=== PATIENT | male | born 1950 | race Caucasian/White ===

== ENCOUNTER 2018-06-12 05:08 | Outpatient (CLI) | payer MEDICARE, OTHER ==
[2018-06-12 13:08] LABS: #Basophils 0.1 thou/uL (0.0-0.2); #Eosinphils 0.1 thou/uL (0.0-0.7); #Monocytes 0.5 thou/uL (0.11-0.59); %Basophils 0.9 % (0.0-1.0); %Eosinophils 2.2 % (0.0-10.0); %Lymphocytes 29.3 % (21.0-51.0); %Monocytes 7.2 % (0.0-10.0); %Neutrophils 60.5 % (42.0-75.0); Hemoglobin 13.9 g/dL (14.0-18.0); Mean Corpuscular HGB CONC 32.6 g/dL (32.0-36.0); Mean Corpuscular Hemoglobin 28.1 pg (27.0-31.0); Mean Corpuscular Volume 86.3 fL (78.0-98.0); Mean Platelet Volume 9.5 fL (7.4-10.4); Platelet Count 216 thou/uL (130-400); RBC Distribution Width 13.5 % (11.5-14.5); Red Blood Cell (RBC) Count 4.94 mill/uL (4.70-6.10); White Blood Cell (WBC) Count 6.7 thou/uL (4.8-10.8)
[2018-06-12 13:26] LABS: PTT 30.8 SEC (22.9-36.1); Prothrombin Time 13.1 SEC (12.0-14.7)
[2018-06-12 13:32] LABS: Anion Gap 15 mmol/L (10-20); BUN (Urea Nitrogen) 16 mg/dL (8.4-25.7); Carbon Dioxide 22 mmol/L (23-31); Chloride 105 mmol/L (98-107); Potassium 5.4 mmol/L (3.5-5.1); Sodium 137 mmol/L (136-145)
[2018-06-12 13:33] LABS: ALT (SGPT) 22 U/L (8-55); AST (SGOT) 20 U/L (5-34); Albumin 4.9 g/dL (3.4-4.8); Alkaline Phosphatase 58 U/L (40-150); Bilirubin, Total 0.5 mg/dL (0.2-1.2); Calc. Creatinine Clearance 0 mL/min (70-130); Calcium 10.6 mg/dL (7.8-10.44); Cardiac Risk 4.8 (Less than 4.5); Cholesterol 171 mg/dl (< 200 Desired); Estimated GFR-MDRD 72; Globulin 2.2 g/dL (2.4-3.5); Glucose 99 mg/dL (80-115); HDL Cholesterol 36 mg/dL (>60 Neg Risk); LDL Cholesterol, Calculated 94 mg/dL; Protein, Total 7.1 g/dL (5.8-8.1); Triglycerides 204 mg/dL (Less than 150)
== END 2018-06-12 05:09 | disposition home or self-care (01) ==
LOC: LABBT 05:08
PROVIDERS: ATTEND Internal Medicine Cardiovascular Disease
DX: Z01.812 Encounter for preprocedural laboratory examination (principal); I42.9 Cardiomyopathy, unspecified
CPT/HCPCS: 80053; 80061; 85025; 85610; 85730

== ENCOUNTER 2018-06-19 07:56 | Day surgery (SDC) | payer MEDICARE, OTHER ==
[2018-06-12 12:03] VITALS: BMI 32.4
[2018-06-19] MEDS ORDERED: Fentanyl 100 MCG/2 ML VIAL ONE (09:10)
[2018-06-19] MEDS ORDERED: Midazolam HCl 2 mg/2 ml Vial ONE (09:10)
[2018-06-19] MEDS ORDERED: Nitroglycerin 100MG/250ML BOT 250 ML ONE (09:44)
[2018-06-19] MEDS ORDERED: Verapamil 5 MG/2 ML VIAL ONE (09:44)
[2018-06-19] MEDS ORDERED: Heparin 10,000 UNITS/1 ML VIAL ONE (09:44)
[2018-06-19] MEDS ORDERED: Iopamidol 370 76% 50 ML VIAL FS ONE (12:55)
[2018-06-19] MEDS ORDERED: Iopamidol 370 76% 100 ML VIAL ONE (12:55)
== END 2018-06-19 14:18 | disposition home or self-care (01) ==
LOC: CCL 07:56
PROVIDERS: ATTEND Internal Medicine Cardiovascular Disease
PROC: 027034Z Dilation of Coronary Artery, One Artery with Drug-eluting Intraluminal Device, Percutaneous Approach (ICD-10-PCS; principal; 2018-06-19)
PROC: 4A023N7 Measurement of Cardiac Sampling and Pressure, Left Heart, Percutaneous Approach (ICD-10-PCS; 2018-06-19)
PROC: B2111ZZ Fluoroscopy of Multiple Coronary Arteries using Low Osmolar Contrast (ICD-10-PCS; 2018-06-19)
DX: I25.10 Atherosclerotic heart disease of native coronary artery without angina pectoris (principal); I11.9 Hypertensive heart disease without heart failure; I42.9 Cardiomyopathy, unspecified; E78.5 Hyperlipidemia, unspecified; K21.9 Gastro-esophageal reflux disease without esophagitis; E11.9 Type 2 diabetes mellitus without complications; G47.33 Obstructive sleep apnea (adult) (pediatric); Z87.891 Personal history of nicotine dependence; Z79.82 Long term (current) use of aspirin; Z79.84 Long term (current) use of oral hypoglycemic drugs; Z79.899 Other long term (current) drug therapy
CPT/HCPCS: 85347; 92928; 93005; 93010; 93458; 99152; 99153; C1769; C1874; C9600; J1644; J2250; J3010; Q9967

== ENCOUNTER 2019-02-21 09:44 | Emergency (ER) | payer MEDICARE, OTHER | END 2019-02-21 10:20 | disposition home or self-care (01) | LOC: SCSER 09:44 | DX: S39.012A Strain of muscle, fascia and tendon of lower back, initial encounter (principal); E11.9 Type 2 diabetes mellitus without complications; I25.2 Old myocardial infarction; E78.5 Hyperlipidemia, unspecified; I10 Essential (primary) hypertension; Z87.891 Personal history of nicotine dependence; Z79.82 Long term (current) use of aspirin; Z95.5 Presence of coronary angioplasty implant and graft; Z79.84 Long term (current) use of oral hypoglycemic drugs; X50.1XXA Overexertion from prolonged static or awkward postures, initial encounter | CPT/HCPCS: 99283 ==